=== PATIENT | female | born 1990 | race Caucasian/White ===

== ENCOUNTER 2024-02-26 03:25 | Emergency (ER) | payer SELFPAY ==
[2024-02-26] MEDS: Sodium Chloride 0.9% 10 ML Syringe FLUSH PRN (03:39)
[2024-02-26] MEDS: Sodium Chloride 0.9% 1,000 ML IV ONE (03:51)
[2024-02-26] MEDS ORDERED: Naloxone 0.4 MG/ML SDV IVPUSH PRN (04:04)
[2024-02-26] MEDS: HYDROmorphone 1 MG/ML Syringe IVPUSH ONE (04:15)
[2024-02-26 04:30] LABS: BASOPHILS ABSOLUTE AUTO 0.02 10^3/uL (0.00-0.10); BASOPHILS PERCENT AUTO 0.2 % (0.0-1.0); EOSINOPHILS ABSOLUTE AUTO 0.05 10^3/uL (0.10-0.30); EOSINOPHILS PERCENT AUTO 0.5 % (1.0-3.0); HEMATOCRIT 36.8 % (37.0-47.0); HEMOGLOBIN 12.7 g/dL (12.0-16.0); IMMATURE GRAN ABSOLUTE AUTO 0.03 10^3/uL (0.00-0.50); IMMATURE GRAN PERCENT AUTO 0.3 % (0.0-5.0); LYMPHOCYTES ABSOLUTE AUTO 1.67 10^3/uL (1.00-4.00); LYMPHOCYTES PERCENT AUTO 17.5 % (20.0-40.0); MEAN CORPUSCULAR HGB CONC 34.5 g/dL (32.0-36.0); MEAN CORPUSCULAR VOLUME 92.7 fL (82.0-92.0); MEAN PLATELET VOLUME 8.9 fL (7.4-10.4); MONOCYTES ABSOLUTE AUTO 0.67 10^3/uL (0.10-0.80); NEUTROPHILS ABSOLUTE AUTO 7.08 10^3/uL (2.50-7.00); NEUTROPHILS PERCENT AUTO 74.5 % (50.0-70.0); PLATELET COUNT,PLT 322 10^3/uL (150-400); RED BLOOD CELL COUNT 3.97 10^6/uL (3.80-5.50); RED CELL DISTRIBUTION WIDTH 12.7 % (11.5-14.5); WHITE BLOOD CELL COUNT,WBC 9.52 10^3/uL (5.00-10.00)
[2024-02-26] MEDS: diphenhydrAMINE 50 MG/ML SDV IVPUSH ONE (04:31)
[2024-02-26] MEDS: Promethazine 25 MG in Sodium Chloride 0.9% 100 ML IV ONE (04:38)
[2024-02-26] MEDS: Dicyclomine 20 MG/2 ML SDV IM ONE (04:41)
[2024-02-26 04:47] LABS: APPEARANCE,URINE SLIGHTLY CLOUDY (CLEAR); BILIRUBIN,URINE NEGATIVE (NEGATIVE); COLOR,URINE YELLOW (YELLOW); GLUCOSE,URINE NEGATIVE (NEGATIVE); KETONES,URINE >=160 mg/dL (NEGATIVE); LEUKOCYTE ESTERASE,URINE NEGATIVE (NEGATIVE); NITRITE,URINE NEGATIVE (NEGATIVE); OCCULT BLOOD,URINE NEGATIVE (NEGATIVE); PH,URINE 7.5 (5.0-9.0); PROTEIN,URINE NEGATIVE (NEGATIVE); UROBILINOGEN,URINE 0.2 E.U./dL (0.2-1.0)
[2024-02-26 04:50] LABS: ALANINE AMINOTRANSFERASE,ALT 21 U/L (14-63); ALBUMIN 4.58 g/dL (3.40-5.00); ALKALINE PHOSPHATASE 49 U/L (46-116); AMYLASE 52 U/L (25-125); ANION GAP 15.6 mmol/L (5-15); ASPARTATE AMNIOTRANSFERASE,AST 14 U/L (15-37); BILIRUBIN TOTAL 0.6 mg/dL (0.2-1.0); BLOOD UREA NITROGEN,BUN 10 mg/dL (7-18); CALCIUM 9.9 mg/dL (8.7-10.3); CARBON DIOXIDE,CO2 25.6 mmol/L (21.0-32.0); CHLORIDE,CL 102 mmol/L (98-107); CREATININE 0.73 mg/dL (0.51-1.17); GLUCOSE RANDOM 92 mg/dL (70-140); LIPASE 33 U/L (16-77); POTASSIUM,K 4.2 mmol/L (3.5-5.1); PROTEIN TOTAL,TP 7.6 g/dL (6.4-8.2); SODIUM,NA 139 mmol/L (136-145)
[2024-02-26 04:57] LABS: HCG QUALITATIVE,SERUM NEGATIVE (NEGATIVE)
[2024-02-26 04:58] LABS: ESTIMATED GFR 113 mL/min (>=60)
[2024-02-26 05:31] LABS: LACTIC ACID 0.9 mmol/L (0.4-2.0)
== END 2024-02-26 06:05 | disposition home or self-care (01) ==
LOC: KA.ED 03:25
DX: K58.0 Irritable bowel syndrome with diarrhea (principal); R10.13 Epigastric pain; Z90.49 Acquired absence of other specified parts of digestive tract
CPT/HCPCS: 36415; 74021; 80053; 81003; 82150; 83605; 83690; 84703; 85025; 96361; 96365; 96372; 96375; 99284; 99284-25; J0500; J1170; J1200; J2550; J3490; J7030

== ENCOUNTER 2024-11-25 18:16 | Emergency (ER) | payer SELFPAY ==
[2024-11-25] MEDS: Ketorolac 30 MG/ML SDV IVPUSH ONE (18:42)
[2024-11-25] MEDS: Sodium Chloride 0.9% 1,000 ML IV ONE (18:42)
[2024-11-25] MEDS: diphenhydrAMINE 50 MG/ML SDV IVPUSH ONE (18:42)
[2024-11-25] MEDS: Metoclopramide 10 MG/2 ML SDV IVPUSH ONE (19:54)
== END 2024-11-25 20:38 | disposition home or self-care (01) ==
LOC: KA.ED 18:16
DX: G43.909 Migraine, unspecified, not intractable, without status migrainosus (principal); Z90.49 Acquired absence of other specified parts of digestive tract
CPT/HCPCS: 96361; 96374; 96375; 99283; 99283-25; J1200; J1885; J2765; J7030

== ENCOUNTER 2024-11-29 20:18 | Emergency (ER) | payer SELFPAY ==
[2024-11-29] MEDS ORDERED: Sodium Chloride 0.9% 10 ML Syringe FLUSH PRN (20:31)
[2024-11-29] MEDS: Sodium Chloride 0.9% 1,000 ML IV ONE (20:44)
[2024-11-29] MEDS: diphenhydrAMINE 50 MG/ML SDV IVPUSH ONE (20:44)
[2024-11-29] MEDS: Ketorolac 30 MG/ML SDV IVPUSH ONE (20:50)
[2024-11-29] MEDS: Promethazine 12.5 MG in Sodium Chloride 0.9% 100 ML IV ONE (21:04)
== END 2024-11-29 21:55 | disposition home or self-care (01) ==
LOC: KA.ED 20:18
DX: G43.909 Migraine, unspecified, not intractable, without status migrainosus (principal); J45.909 Unspecified asthma, uncomplicated; Z79.899 Other long term (current) drug therapy; Z90.49 Acquired absence of other specified parts of digestive tract; Z87.891 Personal history of nicotine dependence
CPT/HCPCS: 96365; 96375; 99283; 99283-25; J1200; J1885; J2550; J7030

== ENCOUNTER 2025-01-13 18:53 | Emergency (ER) | payer MEDICAID ==
[2025-01-13] MEDS ORDERED: Sodium Chloride 0.9% 10 ML Syringe FLUSH PRN (19:06)
[2025-01-13] MEDS: Ondansetron 4 MG/2 ML SDV IVPUSH ONE (19:18)
[2025-01-13] MEDS: LORazepam 2 MG/ML SDV IVPUSH ONE (19:19)
[2025-01-13] MEDS: Lactated Ringers 1,000 ML IV ONE (19:19)
[2025-01-13 19:25] LABS: BASOPHILS ABSOLUTE AUTO 0.03 10^3/uL (0.00-0.10); BASOPHILS PERCENT AUTO 0.4 % (0.0-1.0); EOSINOPHILS ABSOLUTE AUTO 0.11 10^3/uL (0.10-0.30); EOSINOPHILS PERCENT AUTO 1.4 % (1.0-3.0); HEMATOCRIT 38.8 % (37.0-47.0); IMMATURE GRAN ABSOLUTE AUTO 0.01 10^3/uL (0.00-0.04); IMMATURE GRAN PERCENT AUTO 0.1 % (0.0-0.4); LYMPHOCYTES ABSOLUTE AUTO 2.27 10^3/uL (1.00-4.00); LYMPHOCYTES PERCENT AUTO 28.6 % (20.0-40.0); MEAN CORPUSCULAR HEMOGLOBIN 31.3 pg (27.0-31.0); MEAN CORPUSCULAR HGB CONC 33.5 g/dL (32.0-36.0); MEAN CORPUSCULAR VOLUME 93.3 fL (82.0-92.0); MEAN PLATELET VOLUME 9.3 fL (7.4-10.4); MONOCYTES PERCENT AUTO 6.3 % (2.0-8.0); NEUTROPHILS ABSOLUTE AUTO 5.03 10^3/uL (2.50-7.00); NEUTROPHILS PERCENT AUTO 63.2 % (50.0-70.0); PLATELET COUNT,PLT 304 10^3/uL (150-400); RED BLOOD CELL COUNT 4.16 10^6/uL (3.80-5.50); RED CELL DISTRIBUTION WIDTH 12.4 % (11.5-14.5); WHITE BLOOD CELL COUNT,WBC 7.95 10^3/uL (5.00-10.00)
[2025-01-13 19:40] LABS: ALBUMIN 4.64 g/dL (3.40-5.00); ANION GAP 14.9 mmol/L (5-15); BILIRUBIN TOTAL 0.6 mg/dL (0.2-1.0); CALCIUM 9.5 mg/dL (8.7-10.3); CARBON DIOXIDE,CO2 24.1 mmol/L (21.0-32.0); CREATININE 0.76 mg/dL (0.51-1.17); EST CRCL DRUG DOSING (CG) 110.34 mL/min; PROTEIN TOTAL,TP 7.7 g/dL (6.4-8.2)
[2025-01-13] MEDS: Metoclopramide 10 MG/2 ML SDV IVPUSH ONE (19:54)
[2025-01-13 20:03] LABS: APPEARANCE,URINE SLIGHTLY CLOUDY (CLEAR); BILIRUBIN,URINE NEGATIVE (NEGATIVE); COLOR,URINE YELLOW (YELLOW); GLUCOSE,URINE NEGATIVE (NEGATIVE); KETONES,URINE TRACE mg/dL (NEGATIVE); LEUKOCYTE ESTERASE,URINE NEGATIVE (NEGATIVE); NITRITE,URINE NEGATIVE (NEGATIVE); OCCULT BLOOD,URINE NEGATIVE (NEGATIVE); PROTEIN,URINE NEGATIVE (NEGATIVE); UROBILINOGEN,URINE 0.2 E.U./dL (0.2-1.0)
[2025-01-13 20:04] LABS: BACTERIA,URINE FEW /HPF (NONE TO FEW); EPITHELIAL CELLS,URINE FEW /LPF; MUCUS,URINE FEW /LPF (NEGATIVE); RBC,URINE 0-5 /HPF (0-5); WBC,URINE 0-5 /HPF (0-5)
[2025-01-13] MEDS: Sodium Chloride 0.9% 50 ML IV ONE (20:24)
[2025-01-13] MEDS: Iopamidol 755 Mg/ML 100 ML Bottle IV ONE (20:25)
[2025-01-13] MEDS: Dicyclomine 20 MG/2 ML SDV IM ONE (21:17)
== END 2025-01-13 21:25 | disposition home or self-care (01) ==
LOC: KA.ED 18:53
DX: K58.0 Irritable bowel syndrome with diarrhea (principal); F17.210 Nicotine dependence, cigarettes, uncomplicated; Z86.16 Personal history of COVID-19; Z90.49 Acquired absence of other specified parts of digestive tract
CPT/HCPCS: 74177; 80053; 81001; 81025; 83690; 85025; 96361; 96372; 96374; 96375; 99284; 99284-25; J0500; J2060; J2405; J2765; J3490; J7120; Q9967